=== PATIENT | female | born 1970 ===

== ENCOUNTER 2020-10-23 09:58 | Outpatient (REF) | payer OTHER, SELFPAY ==
[2020-10-23 14:20] LABS: Alanine Aminotransferase 14 U/L (0-31); Anion Gap 14 (12-20); Aspartate Amino Transferase 19 U/L (5-31); Blood Urea Nitrogen 16 mg/dL (9-16); Calcium 10.3 mg/dL (8.4-10.2); Carbon Dioxide 24 mmol/L (22-29); Chloride 105 mmol/L (96-108); Cholesterol 279 mg/dL; Estimated Glomerular Filt Rate > 60; Glucose Fasting 96 mg/dL (60-99); HDL Cholesterol 63 mg/dL; LDL Cholesterol Calculated 193 mg/dl; Potassium 4.2 mmol/L (3.3-5.1); Sodium 139 mmol/L (135-145); Triglycerides 118 mg/dL
[2020-10-23 14:39] LABS: Vitamin D 25-OH Total 37.8 ng/mL (>30)
== END 2020-10-23 09:59 | disposition home or self-care (01) ==
LOC: HO.HMGCLDS 09:58
PROVIDERS: PCP Internal Medicine; Visit Provider Internal Medicine
DX: Z00.00 Encounter for general adult medical examination without abnormal findings (principal); E78.5 Hyperlipidemia, unspecified; I10 Essential (primary) hypertension; F41.8 Other specified anxiety disorders
CPT/HCPCS: 36415; 80048; 80061; 82306; 84450; 84460

== ENCOUNTER 2021-01-31 09:48 | Outpatient (REF) | payer OTHER, SELFPAY ==
[2021-01-31 11:45] LABS: Alanine Aminotransferase 39 U/L (0-31); Aspartate Amino Transferase 34 U/L (5-31); Cholesterol 203 mg/dL; HDL Cholesterol 50 mg/dL; LDL Cholesterol Calculated 128 mg/dl; Triglycerides 129 mg/dL
[2021-02-03 12:41] LABS: Calcium, Ionized 4.9 mg/dL (4.8-5.6)
== END 2021-01-31 09:49 | disposition home or self-care (01) ==
LOC: HO.HMGCLDS 09:48
PROVIDERS: PCP Internal Medicine; Visit Provider Internal Medicine
DX: E78.5 Hyperlipidemia, unspecified (principal); E83.52 Hypercalcemia
CPT/HCPCS: 36415; 80061; 82330; 84450; 84460

== ENCOUNTER 2022-01-03 14:50 | Outpatient (REF) | payer OTHER, SELFPAY ==
--- NOTE | ~2022-01-03 | XR_ITS ---
EXAMINATION: XR CERVICAL SPINE CLINICAL INFORMATION: Radiculopathy COMPARISON: Cervical spine MRI March 17, 2018 and cervical spine x-rays October 12, 2017 TECHNIQUE: 3 views of the cervical spine were obtained. FINDINGS: The cervical spine is visualized in its entirety. There is trace retrolisthesis of C2 on C3, C3 on C4 and C4 on C5. Alignment is otherwise unremarkable. C1/2 articulation is within normal limits. Cervical vertebral body heights are maintained. There is mild disc space narrowing throughout the cervical spine. Small osteophytes scattered throughout the cervical spine, most prominent at the C4/5 level. There is no prevertebral soft tissue swelling. Visualized lung apices are well aerated. XR/XR cervical spine 3V IMPRESSION: Mild diffuse degenerative changes of the cervical spine.
== END 2022-01-03 14:51 | disposition home or self-care (01) ==
LOC: HO.HMGCX 14:50
PROVIDERS: PCP Internal Medicine; Visit Provider Physician Assistant
DX: M54.12 Radiculopathy, cervical region (principal)
CPT/HCPCS: 72040

== ENCOUNTER 2022-01-23 07:14 | Outpatient (REF) | payer OTHER, SELFPAY ==
--- NOTE | ~2022-01-23 | MR_ITS ---
EXAMINATION: MR CERVICAL SPINE WITHOUT CONTRAST CLINICAL INFORMATION: 51-year-old with self-reported neck pain radiating to the right arm more than left. Radiculopathy, cervical region. COMPARISON: 03/17/2018 MRI. TECHNIQUE: MRI of the cervical spine was obtained using routine sequences without contrast. FINDINGS: Alignment: Alignment is well-maintained. No spondylolisthesis or retrolisthesis. Craniocervical Junction/C1-C2 Articulations: Intact and aligned. Visualized Intracranial Structures: Within normal limits. Vertebral Bodies: Vertebral body heights are well-maintained stable in appearance. Disc Spaces and Endplates: [id number] disc volume loss at C2-C3 and C3-C4 and moderate to disc volume loss at C4-C5 stable in appearance, with mild degrees of multilevel anterior spondylosis between C2-C3 and C6-C7 inclusive unchanged. Schmorl's nodes at C3-C4 stable in appearance. Bone Marrow: Minor type I degenerative marrow signal change along the inferior endplate of C3 on the left is a new finding. Type II degenerative marrow signal changes along the endplates at C3-C4 are similar to previous study. No suspicious marrow replacing process. Probable small benign vertebral hemangioma on the right side of the C5 vertebral body is suspected on the current study. C2-C3: Disc osteophyte complex mildly indents the thecal sac without cord impingement, stable in appearance without canal stenosis. No significant DJD or foraminal stenosis. C3-C4: Disc osteophyte complex asymmetric to the left stable in appearance with slight flattening of the dural sac on the left without cord impingement or canal stenosis. There is uncovertebral arthrosis, left more than right, stable in appearance with mild neural foraminal stenosis, left more than right, unchanged. C4-C5: Disc osteophyte complex slightly flattens the ventral thecal sac without cord impingement and no significant canal stenosis. There is uncovertebral spurring and mild facet arthropathy again noted, now with moderate to severe left-sided and moderate right-sided neural foraminal stenosis, progressed on the left from previous exam. C5-C6: Shallow broad-based central to right paramedian disc protrusion on current exam, with mild flattening of the ventral dural sac without cord impingement or significant canal stenosis. No significant DJD or neuroforaminal stenosis. C6-C7: Right-sided subarticular to foraminal disc herniation again noted impinging on the exiting right C7 nerve root associated with severe proximal right-sided foraminal narrowing similar to previous study. Underlying minor disc osteophyte complex noted without evidence central canal stenosis. C7-T1: No disc herniation or canal stenosis. Mild facet arthrosis and ligamentum flavum thickening noted bilaterally stable in appearance without significant neural foraminal stenosis, with a perineural cyst on the left, unchanged. T1-T2: No disc herniation or canal stenosis. No DJD or neuroforaminal stenosis. Spinal Cord: The cervical and visualized upper thoracic spinal cord is normal in morphology, caliber and signal intensity. Extracranial Soft Tissues: The visualized extracranial head/neck soft tissues are unremarkable within the limitations of the study. MR/MR cervical spine wo con IMPRESSION: 1. Stable multilevel DDD and spondylosis with normal spinal alignment. 2. Right subarticular to proximal foraminal disc herniation at C6-C7 again noted with impingement on the exiting right C7 nerve root similar to the prior study with associated right-sided foraminal narrowing. 3. Multilevel posterior disc osteophyte complexes and disc protrusions as detailed by level above without cord impingement or significant canal stenosis most of which is stable. Multilevel DJD is noted with moderate to severe left-sided and moderate right-sided neural foraminal stenosis at C4-C5, progressed on the left from the previous study and mild neural foraminal stenosis at C3-C4, left more than right stable in appearance.
== END 2022-01-23 07:15 | disposition home or self-care (01) ==
LOC: HO.MRI 07:14
PROVIDERS: Visit Provider Internal Medicine
DX: M54.12 Radiculopathy, cervical region (principal)
CPT/HCPCS: 72141

== ENCOUNTER 2022-02-18 11:06 | Outpatient (REF) | payer OTHER, SELFPAY ==
[2022-02-18 14:43] LABS: Alanine Aminotransferase 57 U/L (0-31); Anion Gap 14 (12-20); Aspartate Amino Transferase 40 U/L (5-31); Blood Urea Nitrogen 15 mg/dL (9-16); Calcium 9.8 mg/dL (8.4-10.2); Carbon Dioxide 26 mmol/L (22-29); Chloride 104 mmol/L (96-108); Cholesterol 208 mg/dL; Estimated Glomerular Filt Rate > 60; Glucose Fasting 100 mg/dL (60-99); HDL Cholesterol 59 mg/dL; LDL Cholesterol Calculated 127 mg/dl; Potassium 4.4 mmol/L (3.3-5.1); Sodium 140 mmol/L (135-145); Triglycerides 112 mg/dL; Vitamin D 25-OH Total 41.9 ng/mL (>30)
== END 2022-02-18 11:07 | disposition home or self-care (01) ==
LOC: HO.HMGCLDS 11:06
PROVIDERS: PCP Internal Medicine; Visit Provider Internal Medicine
DX: E83.52 Hypercalcemia (principal); N95.9 Unspecified menopausal and perimenopausal disorder; E78.5 Hyperlipidemia, unspecified
CPT/HCPCS: 36415; 80048; 80061; 82306; 82330; 84450; 84460

== ENCOUNTER → 2022-03-12 09:15 | Outpatient (BNVA) | payer OTHER, SELFPAY | PROVIDERS: PCP Internal Medicine; Visit Provider Anesthesiology | DX: M50.30 Other cervical disc degeneration, unspecified cervical region (principal); M54.12 Radiculopathy, cervical region | CPT/HCPCS: 99202 ==

== ENCOUNTER 2022-04-21 05:51 | Outpatient (REF) | payer OTHER, SELFPAY ==
--- NOTE | ~2022-04-21 | FL_ITS ---
EXAMINATION: XR FLUOROSCOPY WITH IMAGES CLINICAL INFORMATION: M54.12 - Radiculopathy, cervical region COMPARISON: Radiographs cervical spine 01/03/2022 TECHNIQUE: Fluoroscopy Supervised By: Dr. Yuniel Hodgson. Fluoroscopy Time: 0.2 minutes. Cumulative Dose: 1.70 mGy. DAP: 0.465 Gycm2. Images: 2. FINDINGS: There is interlaminar spinal needle seen at cervical thoracic junction. There is epidural contrast noted. No visible vascular communication. FL/FL guidance in treatment room IMPRESSION: Fluoroscopy for pain management procedure.
== END 2022-04-21 05:52 | disposition home or self-care (01) ==
LOC: CF 05:51
PROVIDERS: Visit Provider Anesthesiology
DX: M54.12 Radiculopathy, cervical region (principal); M50.30 Other cervical disc degeneration, unspecified cervical region
CPT/HCPCS: 62321; J1100

== ENCOUNTER → 2022-05-25 08:18 | Outpatient (BNVA) | payer OTHER, SELFPAY | PROVIDERS: PCP Internal Medicine; Visit Provider Anesthesiology | DX: M50.30 Other cervical disc degeneration, unspecified cervical region (principal); M54.12 Radiculopathy, cervical region; F41.1 Generalized anxiety disorder; F32.A Depression, unspecified; F17.210 Nicotine dependence, cigarettes, uncomplicated | CPT/HCPCS: 99212 ==

== ENCOUNTER 2022-08-03 10:59 | Outpatient (REF) | payer OTHER, SELFPAY ==
[2022-08-03 14:05] LABS: MANUAL DIFF FLAG NO
[2022-08-03 14:38] LABS: Basophils Absolute Auto 0.1 X10*3/uL (0.0-0.2); Basophils Percent Auto 1.7 % (0-2); Eosinophils Absolute Auto 0.2 X10*3/uL (0.0-0.4); Eosinophils Percent Auto 3.2 % (0-4); Hematocrit 44.9 % (37.0-47.0); Hemoglobin 14.5 g/dl (12.0-16.0); Imm Gran Abs Auto 0.01 X10*3/uL (0.00-0.03); Imm Gran Pct Auto 0.2 % (0.0-0.4); Lymphocytes Absolute Auto 2.1 X10*3/uL (1.2-4.9); Lymphocytes Percent Auto 39.6 % (20-40); Mean Corpuscular HGB Conc 32.3 g/dl (31.0-35.0); Mean Corpuscular Hemoglobin 28.4 pg (27.0-33.0); Mean Corpuscular Volume 87.9 fL (80.0-98.0); Mean Platelet Volume 10.8 fL (9.4-12.3); Monocytes Absolute Auto 0.3 X10*3/uL (0.1-1.2); Monocytes Percent Auto 6.2 % (2-11); Neutrophils Absolute Auto 2.6 x10*3/uL (2.0-8.3); Neutrophils Percent Auto 49.1 % (45-73); Platelet Count 262 X10*3/uL (160-400); Red Blood Count 5.11 X10*6/uL (4.20-5.50); Red Cell Distribution Width 13.2 % (11.0-16.0); White Blood Count 5.4 X10*3/uL (4.8-10.8)
== END 2022-08-03 11:00 | disposition home or self-care (01) ==
LOC: HO.HMGCLDS 10:59
PROVIDERS: PCP Internal Medicine; Visit Provider Internal Medicine
DX: R10.31 Right lower quadrant pain (principal); R11.2 Nausea with vomiting, unspecified
CPT/HCPCS: 36415; 85025

== ENCOUNTER 2022-08-05 08:44 | Outpatient (REF) | payer OTHER, SELFPAY ==
--- NOTE | ~2022-08-05 | CT_ITS ---
EXAMINATION: CT ABDOMEN AND PELVIS WITH CONTRAST CLINICAL INFORMATION: Right lower quadrant pain COMPARISON: None available. TECHNIQUE: Multidetector volumetric images were obtained from the superior aspect of the liver through the pubic symphysis following administration 85 mL of Omnipaque 350 intravenous contrast. Sagittal and coronal reformatted images were obtained on the technologist's workstation. Oral contrast: No This CT examination was performed using dose optimization techniques as appropriate, variously including the following: *Automated exposure control *Adjustment of mA and/or kV according to patient size (this includes techniques or standardized protocols for targeted exams where dose is matched to indication/reason for exam; i.e. extremities or head) *Use of iterative reconstruction technique DLP: 345 mGy-cm FINDINGS: LUNG BASES: The visualized lung bases are unremarkable. LIVER, GALLBLADDER, AND BILIARY TREE: Small low-density lesion in the left lobe likely represents a small cyst. Seen previously. Slightly larger. The gallbladder is unremarkable with no evidence of radiopaque gallstones, gallbladder wall thickening, or obvious pericholecystic inflammatory changes. PANCREAS: Unremarkable. SPLEEN: Unremarkable. ADRENAL GLANDS: Unremarkable. KIDNEYS AND URETERS: The kidneys are normal in size, shape, and attenuation. No hydronephrosis, hydroureter, or calculi seen. No perinephric stranding. BLADDER: Unremarkable. GASTROINTESTINAL TRACT: The bowel pattern is felt to be nonobstructing. The appendix is normal. There is no free fluid. ABDOMINAL WALL: No significant hernia is appreciated. LYMPH NODES: Normal. VASCULAR: Unremarkable. PELVIC VISCERA: Unremarkable. OSSEOUS STRUCTURES: Unremarkable. CT/CT abdomen pelvis w IV con IMPRESSION: No acute finding. The bowel pattern is nonobstructing. No free fluid. The appendix is within normal limits. Some scattered diverticula disease in the colon. No evidence for diverticulitis. Fleischner guidelines were followed.
[2022-08-05 11:17] LABS: Appearance Urine Clear; Color Urine Dark Yellow; Glucose Urine UA 100 mg/dL (Negative); Leukocyte Esterase Urine Small (1+) (Negative); Nitrite Urine Negative (Negative); PH 6.5 (5.0-9.0); Specific Gravity - Urine 1.025 (1.005-1.025); UMIC TRIGGER UACC YES; Urine Blood Negative (Negative); Urine Ketones Negative (Negative); Urine Protein Negative (Neg-Trace)
[2022-08-05 11:22] LABS: Blood Urea Nitrogen 15 mg/dL (9-16); Estimated Glomerular Filt Rate > 60
[2022-08-05 11:23] LABS: Bacteria Urine 1+ (None Seen); Hyaline Casts Urine 0-2 /LPF (0-2); RBC Urine 0-2 /HPF (0-2); UACC Culture Trigger YES
[2022-08-05] MEDS: Barium Sulfate Oral (Mocha) 450 ML ORAL.SUSP 900 ML PO (11:58)
[2022-08-05] MEDS: iohexoL 350 MG/ML 100 ML INFUS..BTL IV (11:59)
[2022-08-05 12:23] LABS: Creatinine POC 0.5 mg/dL (0.5-1.4); GFR POC 60
== END 2022-08-05 08:45 | disposition home or self-care (01) ==
LOC: HO.CT 08:44
PROVIDERS: PCP Internal Medicine; Visit Provider Internal Medicine
DX: R10.31 Right lower quadrant pain (principal); R11.2 Nausea with vomiting, unspecified; T88.59XA Other complications of anesthesia, initial encounter
CPT/HCPCS: 36415; 74177; 81001; 82565; 84520; 87086; Q9967

== ENCOUNTER 2023-03-01 08:57 | Outpatient (AMB) | payer OTHER, SELFPAY ==
--- NOTE | 2023-03-01 09:28 | A.OFFPC_ITS ---
Vital Signs 03/01/23 09:29 Height 5 ft 2 in Weight 141 lb 6 oz BMI 25.9 BP 132/86 Blood Pressure Location Rt brachial Position Sitting Pulse 88 Pulse Source Pulse Oximeter Pulse Oximetry (%) 98 Oxygen Delivery Method Room Air Intake Visit Reasons: ER follow up [facility] Note: pt is here to follow up from [facility] ER pt says this last time their was no findings Allergies walnut Allergy (Severe, Verified 03/01/23 09:51) Anaphylaxis adhesive Allergy (Unknown, Verified 03/01/23 09:51) Blister egg Allergy (Unknown, Verified 03/01/23 09:51) Gastrointestinal Upset erythromycin base Allergy (Unknown, Verified 03/01/23 09:51) Diarrhea, Hives Latex, Natural Rubber [LATEX, NATURAL RUBBER] Allergy (Unknown, Verified 03/01/23 09:51) Rash cyclobenzaprine [From Flexeril] Adverse Reaction (Unknown, Verified 03/01/23 09:51) makes her anxious, jittery Medication List - Last Reconciled 03/01/23 by Norma Waters MD acetaminophen (Tylenol) PO DAILY PRN ashwagandha root extract mg PO evening primrose oil 500 mg PO TID ibuprofen (Motrin) PO DAILY PRN lorazepam 0.5 mg PO DAILY PRN niacin 100 mg PO BEDTIME TENS units Use as directed once a day Tobacco use date assessed: 03/01/23 Dental Screening Dental Screen Date: 03/01/23 Did you have a dental visit in the last 12 months?: Yes Did you have a dental problem in the last 6 months where you did not have access to dental care?: No Was dental information given to patient?: Patient has dentist HPI ER follow up [facility] HPI Details 52-year-old lady with history of diverti culitis, anxiety depression, cervical degenerative disc disease, and dyslipidemia, here today for follow-up after recent ER visit at [facility] 02/10/2023.. She presented there complaining of right lower abdominal pain. Patient was seen at same ER 2 weeks prior and was treated for acute diverticulitis with antibiotics, but abdominal pain persisted. She denies any blood in stool, no nausea, no vomiting, no chest pain, no fever, no shortness of breath. Never had a colonoscopy. Labs done at ER which included urinalysis, CBC , CMP were unremarkable. CT of abdomen showed no acute abnormality. Patient states that only pain relief she gets is when she takes a laxatives and moves her bowels. However abdominal pain usually recurs. She has tried making an appointment with GI for further evaluation management but appointment she was given was not until June 2023. [facility] Medical History (Updated 03/01/23 @ 10:05 by Norma Waters MD) Right lower quadrant abdominal pain DDD (degenerative disc disease), cervical History of smoking 10-25 pack years Depression with anxiety Primary insomnia Dyslipidemia Surgical History H/O wisdom tooth extraction H/O arthroscopic knee surgery H/O bilateral breast reduction surgery History of partial hysterectomy Social History Housing: Condominium Alcohol intake: current Patient Tobacco Use Status: Current everyday Tobacco user Tobacco use type: Cigarette Cigarette Packs Per Day: 8 Cigarettes Per Day: 40 Years Smoked: 30 Packs Per Year: 240 Packs per year/per ci.00 e-Cigarette/Vaping Use: Former Use Second Hand Smoke Exposure: No service: No Current occupational status: employed Cognitive needs: No Hearing needs: No Vision needs: Yes Questionnaire Thrive Questionnaire Date Thrive assessed: 08/03/22 SEN-7 AMB Questionnaire SEN-7 Date SEN - 7 assessed: 08/03/22 Source: Developed by Drs. Omar Rosenthal, Harper Kuhn, Ray Turcios and colleagues, with an educational sherron from [employer]. Review of Systems Const All systems reviewed & are unremarkable except as noted in HPI and below Physical exam (Primary Care) Vital Signs: Last Vital Signs Pulse 88 03/01/23 09:29 BP 132/86 03/01/23 09:29 Pulse Ox 98 03/01/23 09:29 Oxygen Delivery Method Room Air 03/01/23 09:29 BMI result Body Mass Index 25.9 Tobacco/Smoking Status: Tobacco use Status Tobacco use date assessed 03/01/23 03/01/23 09:39 Patient Tobacco Use Status Current everyday Tobacco 03/01/23 09:28 Tobacco use type Cigarette 03/01/23 09:28 e-Cigarette/Vaping Use Former Use 03/01/23 09:28 Thrive Assessment: Date of Thrive Assessment Date Thrive assessed 08/03/22 03/01/23 09:28 Const Other: Alert oriented x3, no acute cardiorespiratory distress noted, ambulatory normal gait HENMT Mouth: moist mucous membranes Resp Auscultation: clear to auscultation bilaterally Cardio Other: S1-S2 present regular rate and rhythm GI Other: Positive tenderness on palpation over right lower quadrant, no rebound, no guarding, no mass palpated Auscultation: normal bowel sounds General: Yes no CVA tenderness Back/Spine/Pelvis Back: no CVA tenderness Skin General skin exam: no rashes or lesions noted Extrem General: Yes full ROM, Yes no joint enlargement, Yes no clubbing, cyanosis or edema and Yes normal gait Assessment and Plan Assessment & Plan (1) Right lower quadrant abdominal pain: Code(s): R10.31 - Right lower quadrant pain Plan: Labs recently done at the ER all came back unremarkable, as CT scan of the abdomen pelvis also showed unremarkable findings with evidence of diverticulitis or appendicitis. . Will empirically treat with dicyclomine 20 mg per tablet to take 1 tablet 3 times a day. Advised to ease up on her dosing frequency if she starts developing any diarrhea with medication. Avoidance of dairy for now, eat food that is easy to digest. Will refer to GI for further evaluation management Orders: Referrals Gastroenterology Referral R10.31 - Right lower quadrant pain Coding Level of Care Code Est Pt Level 3 (59275) Diagnoses Right lower quadrant abdominal pain R10.31
[2023-03-01 09:29] VITALS: BP 132/86; PULSE 88; O2SAT 98; BMI 25.9
== END 2023-03-01 10:51 | disposition home or self-care (01) ==
PROVIDERS: PCP Internal Medicine; Visit Provider Internal Medicine
DX: R10.31 Right lower quadrant pain (principal); F17.210 Nicotine dependence, cigarettes, uncomplicated; F41.8 Other specified anxiety disorders
CPT/HCPCS: 99213

== ENCOUNTER 2023-06-01 08:15 | Outpatient (REF) | payer OTHER, SELFPAY ==
[2023-06-01 09:33] LABS: MANUAL DIFF FLAG NO
[2023-06-01 10:13] LABS: Basophils Absolute Auto 0.1 X10*3/uL (0.0-0.2); Basophils Percent Auto 1.3 % (0-2); Eosinophils Absolute Auto 0.1 X10*3/uL (0.0-0.4); Eosinophils Percent Auto 1.9 % (0-4); Hematocrit 46.4 % (37.0-47.0); Hemoglobin 15.3 g/dl (12.0-16.0); Imm Gran Abs Auto 0.02 X10*3/uL (0.00-0.03); Imm Gran Pct Auto 0.3 % (0.0-0.4); Lymphocytes Absolute Auto 2.1 X10*3/uL (1.2-4.9); Lymphocytes Percent Auto 29.7 % (20-40); Mean Platelet Volume 10.7 fL (9.4-12.3); Monocytes Absolute Auto 0.4 X10*3/uL (0.1-1.2); Monocytes Percent Auto 5.4 % (2-11); Neutrophils Absolute Auto 4.4 x10*3/uL (2.0-8.3); Neutrophils Percent Auto 61.4 % (45-73); Platelet Count 242 X10*3/uL (160-400); Red Blood Count 5.27 X10*6/uL (4.20-5.50); Red Cell Distribution Width 13.2 % (11.0-16.0); White Blood Count 7.2 X10*3/uL (4.8-10.8)
== END 2023-06-01 08:16 | disposition home or self-care (01) ==
LOC: HO.LAB 08:15
PROVIDERS: PCP Internal Medicine; Visit Provider Physician Assistant
DX: R10.31 Right lower quadrant pain (principal); K52.9 Noninfective gastroenteritis and colitis, unspecified; K57.30 Diverticulosis of large intestine without perforation or abscess without bleeding
CPT/HCPCS: 36415; 85025; 99202

== ENCOUNTER 2023-06-01 08:15 | Outpatient (AMB) | payer OTHER, SELFPAY ==
--- NOTE | 2023-06-01 08:20 | MHC.OFFVIS ---
Intake Vital Signs 06/01/23 08:32 Height 5 ft 2 in Weight 140 lb BMI 25.6 BP 152/83 H Blood Pressure Location Lt brachial Position Sitting Pulse 81 Intake Visit Reasons: Right lower quadrant pain Intake Note: Patient new consult for RLQ pain. Patient is been for year with RLQ pain, between diarrhea and constipation abdominal. Denies any other GI issues. Internet Marketing Consultant Required: No Accompanied by: Self / Same As Patient Allergies walnut Allergy (Severe, Verified 06/01/23 08:26) Anaphylaxis adhesive Allergy (Unknown, Verified 06/01/23 08:26) Blister egg Allergy (Unknown, Verified 06/01/23 08:26) Gastrointestinal Upset erythromycin base Allergy (Unknown, Verified 06/01/23 08:26) Diarrhea, Hives Latex, Natural Rubber [LATEX, NATURAL RUBBER] Allergy (Unknown, Verified 06/01/23 08:26) Rash cyclobenzaprine [From Flexeril] Adverse Reaction (Unknown, Verified 06/01/23 08:26) makes her anxious, jittery Medication List - Last Reconciled 06/01/23 by Chela Liriano PA-C ashwagandha root extract mg PO dicyclomine 20 mg PO QID 30 days evening primrose oil 500 mg PO TID ibuprofen (Motrin) PO DAILY PRN lorazepam 0.5 mg PO DAILY PRN niacin 100 mg PO BEDTIME nicotine 1 patch transdermal Q24H TENS units Use as directed once a day HPI HPI Comments History of Present Illness Details A 52 y/o female - LQ pain x 5 years-she was told she had diverticulitis/ diverticulosis- was put on meds for IBS- by pcp- she took IBGuard- works fairly well CT- 02/2023- no findings to account for her symptoms appetite is good-she does get heartburn ongoing intermittently for years Alternating bowel pattern- IBGuard has helped-symptoms improved-BM most days No nausea, vomiting, hematemesis, hematochezia fever chills PFSH Medical History Right lower quadrant abdominal pain DDD (degenerative disc disease), cervical History of smoking 10-25 pack years Depression with anxiety Primary insomnia Dyslipidemia Surgical History H/O wisdom tooth extraction H/O arthroscopic knee surgery H/O bilateral breast reduction surgery History of partial hysterectomy Social History Housing: Condominium Alcohol intake: current Patient Tobacco Use Status: Current everyday Tobacco user Tobacco use type: Cigarette Cigarette Packs Per Day: 8 Cigarettes Per Day: 40 Years Smoked: 30 e-Cigarette/Vaping Use: Former Use Second Hand Smoke Exposure: No service: No Current occupational status: employed Cognitive needs: No Hearing needs: No Vision needs: Yes Review of Systems Const All systems reviewed & are unremarkable except as noted in HPI and below Card Denies chest pain and Denies dyspnea Resp Denies dyspnea GI Reports abdominal pain, Denies hematochezia, Reports heartburn, Denies nausea and Denies vomiting Physical Exam Vital Signs: Last Vital Signs Pulse 81 06/01/23 08:32 BP 152/83 H 06/01/23 08:32 BMI result Body Mass Index 25.6 Const General: cooperative, healthy appearing, comfortable and no acute distress Orientation/consciousness: patient oriented x3 Limitations: no limitations Eyes Sclerae: sclerae normal Resp Effort & Inspection: normal respiratory effort and able to speak in complete sentences Auscultation: clear to auscultation bilaterally, no rales, no rhonchi and no wheezes Cardio Rate: regular rate Rhythm: regular rhythm Heart sounds: S1 normal heart sound present and S2 normal heart sound present GI Palpation (GI): Soft to palpation and nontender Auscultation: normal bowel sounds Skin General skin exam: no rashes or lesions noted Neuro General: patient oriented x3 Extrem General: Yes full ROM Psych Appearance: grossly normal Speech and movement: Clear speech present Affect: normal affect Attitude: cooperative Thought process: Normal thought process present Thought content: Normal thought content present Assessment & Plan Assessment & Plan (1) Right lower quadrant abdominal pain: Comment: Physical exam physical exam unremarkable Code(s): R10.31 - Right lower quadrant pain (2) Diverticulosis of colon: Comment: Diverticulosis/diverticulitis-never had colonoscopy Code(s): K57.30 - Diverticulosis of large intestine without perforation or abscess without bleeding Plan: Index screening colonoscopy Maintain high-fiber diet Diverticulosis/diverticulitis ER protocol Plan Index colon- MG prep Omeprazole-- f/u 6-8 weeks Orders: Orders Complete Blood Count Auto Diff Today K52.9 - Noninfective gastroenteritis and colitis, unspecified Colonoscopy - GI Use Only Today Z12.11 - Encounter for screening for malignant neoplasm of colon Medications: New bisacodyl (Dulcolax (bisacodyl)) Day before procedure @ 12 noon Take 4 tablets by mouth followed by large glass of water 20 mg (4 x 5 mg) PO ONCE 1 day PRN 4 tabs 0RF colonoscopy prep Z12.11 - Encounter for screening for malignant neoplasm of colon polyethylene glycol 3350 (Miralax) Take as directed by mouth the day before your procedure. 238 grams PO ONCE 1 day PRN 238 grams 0RF laxative effect omeprazole 20 mg PO DAILY 30 caps 5RF Patient Instructions: A 52-year-old female referred with chronic right lower quadrant pain history of diverticulosis, presents with acid reflux. Her symptoms are somewhat vague Reviewed reflux precautions Will give trial to PPI Follow back for progress She will be scheduled for Index screening colonoscopy-may add EGD if appropriate Maintain high-fiber diet Diverticulosis/diverticulitis ER protocol Coding Level of Care Code New Pt Level 3 (36721) Diagnoses Right lower quadrant abdominal pain R10.31 Diverticulosis of colon K57.30 Time Spent (min) 30
[2023-06-01 08:32] VITALS: BP 152/83; PULSE 81; BMI 25.6
== END 2023-06-01 09:01 | disposition home or self-care (01) ==
PROVIDERS: PCP Internal Medicine; Visit Provider Physician Assistant
DX: R10.31 Right lower quadrant pain (principal); K57.30 Diverticulosis of large intestine without perforation or abscess without bleeding
CPT/HCPCS: 99203

== ENCOUNTER 2023-09-16 10:30 | Outpatient (AMB) | payer OTHER, SELFPAY ==
--- NOTE | 2023-09-16 10:52 | A.OFFPC_ITS ---
Vital Signs 09/16/23 11:13 Height 5 ft 2 in Weight 140 lb BMI 25.6 BP 168/100 H Blood Pressure Location Lt brachial Position Sitting Pulse 91 Pulse Source Pulse Oximeter Pulse Oximetry (%) 99 Oxygen Delivery Method Room Air Intake Visit Reasons: Rescheduled from 08/16/23 Intake Note: pt here for f/u on Nicotine patch. Did not continue therapy. Still smoking. Requesting urinalysis/culture. Thinks has UTI. C/O urgency/ burning sensation after urinating Allergies walnut Allergy (Severe, Verified 09/27/23 02:49) Anaphylaxis adhesive Allergy (Unknown, Verified 09/27/23 02:49) Blister egg Allergy (Unknown, Verified 09/27/23 02:49) Gastrointestinal Upset erythromycin base Allergy (Unknown, Verified 09/27/23 02:49) Diarrhea, Hives Latex, Natural Rubber [LATEX, NATURAL RUBBER] Allergy (Unknown, Verified 09/27/23 02:49) Rash cyclobenzaprine [From Flexeril] Adverse Reaction (Unknown, Verified 09/27/23 02:49) makes her anxious, jittery Medication List - Last Reconciled 09/27/23 by Norma Waters MD fexofenadine (Pily Allergy) 180 mg PO DAILY lactobacillus combination no.4 (Probiotic) 3,000 mmu cells PO DAILY lidocaine 5% 1 patch topical DAILY PRN lorazepam 0.5 mg PO DAILY PRN multivitamin 1 tab PO DAILY sulfamethoxazole-trimethoprim 800-160 mg (Bactrim DS) 1 tab PO Q12H 3 days TENS units Use as directed once a day varenicline PO PER PKG DIR Tobacco use date assessed: 09/16/23 Dental Screening Dental Screen Date: 09/16/23 Did you have a dental visit in the last 12 months?: No Did you have a dental problem in the last 6 months where you did not have access to dental care?: No Was dental information given to patient?: Patient has dentist HPI Rescheduled from 08/16/23 HPI Details 52-year-old lady here today for follow-u p regarding smoking cessation after trying nicotine patch. Patient states that she had to stop using the patch as she still was having the craving to smoke cigarettes . Like to try something else, has had Chantix in the past which has helped. She is here complaining of urinary frequency and urgency accompanied by slight burning after urination. No accompanying fever, no chills, slight lower abdominal pressure discomfort but no flank pain. She has also been having frequent posterior neck pain with radiation down both arms, right more than the left, accompanied by tingling sensation. MRI of cervical spine done 2019, showed presence of multilevel DDD noted with moderate to severe left-sided and moderate right-sided neural foraminal stenosis at C4- C5, progressed on the left from the previous study and mild neural foraminal stenosis at C3-C4, left more than right stable in appearance.and spondylosis with normal spinal alignment., right disc herniation at C6-C7 with impingement on the exiting right C7 nerve root similar to the prior study with associated right-sided foraminal narrowing. Has been taking naproxen in the past but it has started causing irritation in her stomach, takes an occasional Tylenol which affords not much improvement in her pain. Has been using lidocaine patches to affected area which affords only temporary relief.. Would like a referral to see at [facility] for further evaluation and management. [facility] Medical History (Updated 09/27/23 @ 02:57 by Norma Waters MD) Herniation of cervical intervertebral disc with radiculopathy Right lower quadrant abdominal pain History of smoking 10-25 pack years Depression with anxiety Primary insomnia Dyslipidemia Surgical History H/O wisdom tooth extraction H/O arthroscopic knee surgery H/O bilateral breast reduction surgery History of partial hysterectomy Social History Housing: Condominium Alcohol intake: current Patient Tobacco Use Status: Current everyday Tobacco user Tobacco use type: Cigarette Cigarette Packs Per Day: 8 Cigarettes Per Day: 40 Years Smoked: 30 e-Cigarette/Vaping Use: Former Use Second Hand Smoke Exposure: No service: No Current occupational status: employed Cognitive needs: No Hearing needs: No Vision needs: Yes Questionnaire PHQ-9 Over the last 2 weeks, how often have you been bothered by any of the following problems? 1. Little interest or pleasure in doing things: not at all 2. Feeling down, depressed, or hopeless: not at all 3. Trouble falling or staying asleep, or sleeping too much: nearly every day 4. Feeling tired or having little energy: not at all 5. Poor appetite or overeating: not at all 6. Feeling bad about yourself - or that you are a failure or have let yourself or your family down: not at all 7. Trouble concentrating on things, such as reading the newspaper or watching television: not at all 8. Moving or speaking so slowly that other people could have noticed. Or the opposite - being so fidgety or restless that you have been moving around a lot more than usual: not at all 9. Thoughts that you would be better off or of hurting yourself in some way: not at all Total score: 3 Depression Screening Interpretation: Negative Depression Screening Done: Yes 06859 - PHQ-9 Billing: Yes Source: Developed by Drs. Omar Rosenthal, Harper Kuhn, Ray Turcios and colleagues, with an educational sherron from [employer]. Thrive Questionnaire Date Thrive assessed: 09/16/23 I am a: Patient What is your living situation today?: I have a steady place to live Within the past 12 months, did the food you bought not last and you didn't have the money to get more?: Never true Within the past 12 months, did you worry whether your food would run out before you got money to buy more?: Never true Do you have trouble paying for medicines?: No Do you have trouble getting transportation to medical appointments?: No Do you have trouble paying your heating and electricity bill?: No Do you have trouble taking care of your child, family member or friend?: No Do you have trouble with day-to-day activities such as bathing, preparing meals, shopping, managing finances, etc.?: No Are you currently unemployed and looking for a job?: No Are you interested in more education?: No Please select the resources that you would like help with: None Currently or been in a relationship where the following occur: no concerns reported THRIVE Score: 0 AUDIT C Alcohol Use Questionnaire (AUDIT-C) 1. How often do you have a drink containing alcohol?: Never Total Score: 0 SEN-7 AMB Questionnaire SEN-7 Date SEN - 7 assessed: 09/16/23 Feeling nervous, anxious, or on edge: 0 = Not at all Not being able to stop or control worryin = Not at all Worrying too much about different things: 0 = Not at all Trouble relaxin = Not at all Being so restless that it is hard to sit still: 0 = Not at all Becoming easily annoyed or irritable: 0 = Not at all Feeling afraid as if something awful might happen: 0 = Not at all Total SEN-7 score (0-4 normal; 5-9 mild; 10-14 moderate; 15-21 severe): 0 Source: Developed by Drs. Omar Rosenthal, Harper Kuhn, Ray Turcios and colleagues, with an educational sherron from [employer]. SEN-7 Assessment Billing SEN-7 Assessment Tool: SEN-7 Assessment 27086 Review of Systems Const All systems reviewed & are unremarkable except as noted in HPI and below Reports headache(s) ENT Denies dizziness, Reports headache(s), Denies hoarseness and Denies nasal congestion Card Denies chest pain and Denies dyspnea Resp Denies cough and Denies dyspnea GI Reports abdominal pain, Denies hematochezia, Reports heartburn, Denies nausea and Denies vomiting Reports as per HPI and Denies hematuria Musc Reports as per HPI, Denies abnormal gait and Reports tingling Neuro Denies abnormal gait, Denies dizziness, Reports headache(s), Reports tingling and Reports paresthesias Physical exam (Primary Care) Vital Signs: Last Vital Signs Pulse 91 09/16/23 11:13 BP 168/100 H 09/16/23 11:13 Pulse Ox 99 09/16/23 11:13 Oxygen Delivery Method Room Air 09/16/23 11:13 BMI result Body Mass Index 25.6 Tobacco/Smoking Status: Tobacco use Status Tobacco use date assessed 09/16/23 09/16/23 10:56 Patient Tobacco Use Status Current everyday Tobacco 09/16/23 10:56 Tobacco use type Cigarette 09/16/23 10:56 e-Cigarette/Vaping Use Former Use 09/16/23 10:56 PHQ-9: PHQ-9 Score PHQ-9: Total score 3 09/16/23 11:43 Depression Screening Interpretation: Negative Thrive Assessment: Date of Thrive Assessment Date Thrive assessed 09/16/23 09/16/23 11:23 Currently or been in a relationship where the following occur: no concerns reported Const Other: Alert oriented x3, no acute cardiorespiratory distress noted, ambulatory normal gait Orientation/consciousness: patient oriented x3 HENMT Mouth: moist mucous membranes Neck Other: Slight tenderness on palpation listed on paraspinal muscles and cervical area, decreased range of motion due to pain stiffness Resp Auscultation: clear to auscultation bilaterally Cardio Other: S1-S2 present regular rate and rhythm GI Auscultation: normal bowel sounds General: Yes no CVA tenderness Back/Spine/Pelvis Back: no CVA tenderness Skin General skin exam: no rashes or lesions noted Neuro General: patient oriented x3, gait normal, tone normal, moves all extremities, Normal light touch and pain sensation and no focal motor deficits Extrem General: Yes full ROM, Yes no joint enlargement, Yes no clubbing, cyanosis or edema and Yes normal gait Results AMB Urinalysis, Automated UA Leukoctes 0 Sondra/uL Last Edit by Jordan Garcia CMA on 09/16/23 11:34 UA Nitrite Negative Last Edit by Jordan Garcia CMA on 09/16/23 11:34 UA Urobilinogen 0.2 mg/dL Last Edit by Jordan Garcia CMA on 09/16/23 11:34 UA Protein 0 mg/dL Last Edit by Jordan Garcia CMA on 09/16/23 11:34 UA pH 6.0 Last Edit by Jordan Garcia CMA on 09/16/23 11:34 UA Blood 0 Morgan/uL Last Edit by Jordan Garcia CMA on 09/16/23 11:34 UA Specific [place] 1.005 Last Edit by Jordan Garcia CMA on 09/16/23 11:34 UA Ketone Negative Last Edit by Jordan Garcia CMA on 09/16/23 11:34 UA Bilirubin 0 mg/dL Last Edit by Jordan Garcia CMA on 09/16/23 11:34 UA Glucose 0 mg/dL Last Edit by Jordan Garcia CMA on 09/16/23 11:34 Results Reviewed Results Reviewed: Laboratory Last Values Urine pH (Auto) 6.0 09/16/23 11:32 Specific [place] (Auto) 1.005 09/16/23 11:32 Urine Protein (Auto) 0 mg/dL 09/16/23 11:32 Glucose (UA)(Auto) 0 mg/dL 09/16/23 11:32 Urine Ketones (Auto) Negative 09/16/23 11:32 Urine Blood (Auto) 0 Morgan/uL 09/16/23 11:32 Urine Nitrite (Auto) Negative 09/16/23 11:32 Urine Bilirubin (Auto) 0 mg/dL 09/16/23 11:32 Urine Urobilinogen (Auto) 0.2 mg/dL 09/16/23 11:32 Leukocyte Esterase (Auto) 0 Sondra/uL 09/16/23 11:32 Assessment and Plan Assessment & Plan (1) Cervical radiculopathy at C6: Code(s): M54.12 - Radiculopathy, cervical region Plan: Referral to Dr. Abdiaziz Gutiérrez at [facility] , prescription sent for lidocaine patch 5%, to be applied to affected area in posterior neck /upper back (2) Cervical radiculopathy at C7: Code(s): M54.12 - Radiculopathy, cervical region Plan: Referral to Dr. Abdiaziz Gutiérrez at [facility] (3) History of smoking 10-25 pack years: Code(s): Z87.891 - Personal history of nicotine dependence Plan: Stop nicotine patch, prescription sent for varenicline starter pack, to take as directed, see me back for follow-up in 4 weeks after starting medication (4) Herniation of cervical intervertebral disc with radiculopathy: Code(s): M50.10 - Cervical disc disorder with radiculopathy, unspecified cervical region Plan: Referral to Dr. Abdiaziz Gutiérrez at [facility] (5) Dysuria: Code(s): R30.0 - Dysuria Plan: Empirically treated with Bactrim DS 1 tablet every 12 hours for 3 days, stay well-hydrated, with plenty of water Orders: Orders AMB Urinalysis Automated 09/16/23 Z13.9 - Encounter for screening, unspecified Referrals Orthopedics Referral M54.12 - Radiculopathy, cervical region Medications: New lidocaine 5% leave on most painful area for up to 12 hrs 1 patch topical DAILY PRN 30 ea 1RF Posterior neck pain M54.12 - Radiculopathy, cervical region, M50.30 - Other cervical disc degeneration, unspecified cervical region sulfamethoxazole-trimethoprim 800-160 mg (Bactrim DS) 1 tab PO Q12H 6 tabs 0RF 3 days varenicline PO PER PKG DIR 53 ea 0RF Z87.891 - Personal history of nicotine dependence Coding Level of Care Code Est Pt Level 4 (53500) Diagnoses Cervical radiculopathy at C6 M54.12 Cervical radiculopathy at C7 M54.12 History of smoking 10-25 pack years Z87.891 Herniation of cervical intervertebral disc with radiculopathy M50.10 Dysuria R30.0 Additional Codes SEN-7 Assessment Billing - SEN-7 Assessment Tool: SEN-7 Assessment 33763 ([id number])
[2023-09-16 11:13] VITALS: BP 168/100; PULSE 91; O2SAT 99; BMI 25.6
== END 2023-09-16 12:01 | disposition home or self-care (01) ==
PROVIDERS: PCP Internal Medicine; Visit Provider Internal Medicine
DX: M54.12 Radiculopathy, cervical region (principal)
CPT/HCPCS: 81003; 99214

== ENCOUNTER 2023-10-15 07:54 | Outpatient (AMB) | payer OTHER, SELFPAY ==
--- NOTE | 2023-10-15 07:55 | A.OFFPC_ITS ---
Intake Visit Reasons: 4 week follow up smoking sensation Allergies walnut Allergy (Severe, Verified 10/15/23 08:30) Anaphylaxis adhesive Allergy (Unknown, Verified 10/15/23 08:30) Blister egg Allergy (Unknown, Verified 10/15/23 08:30) Gastrointestinal Upset erythromycin base Allergy (Unknown, Verified 10/15/23 08:30) Diarrhea, Hives Latex, Natural Rubber [LATEX, NATURAL RUBBER] Allergy (Unknown, Verified 10/15/23 08:30) Rash cyclobenzaprine [From Flexeril] Adverse Reaction (Unknown, Verified 10/15/23 08:30) makes her anxious, jittery Medication List - Last Reconciled 10/15/23 by Norma Waters MD fexofenadine (Pily Allergy) 180 mg PO DAILY lactobacillus combination no.4 (Probiotic) 3,000 mmu cells PO DAILY lidocaine 5% 1 patch topical DAILY PRN lorazepam 0.5 mg PO DAILY PRN multivitamin 1 tab PO DAILY TENS units Use as directed once a day varenicline 1 mg PO BID Tobacco use date assessed: 09/16/23 Dental Screening Dental Screen Date: 09/16/23 HPI 4 week follow up smoking sensation HPI Details 53-year-old lady here today for follow-u p regarding her smoking cessation. Currently smokes at least a pack a day in the past, now down to about 5 cigarettes per day after starting Chantix starter pack. Denies any nausea, no abdominal cramping, unpleasant dreams, worsening of anxiety or mood swings on medication. Would like to continue and motivated to quit. [facility] Medical History Blood pressure elevated without history of HTN On varenicline therapy Herniation of cervical intervertebral disc with radiculopathy Right lower quadrant abdominal pain History of smoking 10-25 pack years Depression with anxiety Primary insomnia Dyslipidemia Surgical History H/O wisdom tooth extraction H/O arthroscopic knee surgery H/O bilateral breast reduction surgery History of partial hysterectomy Social History Housing: Condominium Alcohol intake: current Patient Tobacco Use Status: Current everyday Tobacco user Tobacco use type: Cigarette Cigarette Packs Per Day: 8 Cigarettes Per Day: 40 Years Smoked: 30 Packs Per Year: 240 Packs per year/per ci.00 e-Cigarette/Vaping Use: Former Use Second Hand Smoke Exposure: No service: No Current occupational status: employed Cognitive needs: No Hearing needs: No Vision needs: Yes Questionnaire Thrive Questionnaire Date Thrive assessed: 09/16/23 SEN-7 AMB Questionnaire SEN-7 Date SEN - 7 assessed: 09/16/23 Source: Developed by Drs. Omar Rosenthal, Harper Kuhn, Ray Turcios and colleagues, with an educational sherron from [employer]. Review of Systems Const Reports no additional complaints ENT Denies dizziness, Denies hoarseness and Denies nasal congestion Card Denies chest pain, Denies irregular heart rhythm, Denies lightheadedness and Denies dyspnea Resp Denies cough and Denies dyspnea GI Reports as per HPI, Denies abdominal pain, Denies hematochezia and Denies change in bowel habits Neuro Denies dizziness Psych Reports no additional complaints Physical exam (Primary Care) Tobacco/Smoking Status: Tobacco use Status Tobacco use date assessed 09/16/23 10/15/23 07:55 Patient Tobacco Use Status Current everyday Tobacco 10/15/23 07:55 Tobacco use type Cigarette 10/15/23 07:55 e-Cigarette/Vaping Use Former Use 10/15/23 07:55 Thrive Assessment: Date of Thrive Assessment Date Thrive assessed 09/16/23 10/15/23 07:55 Telehealth Telehealth Telehealth Platform: [facility] Location of provider rendering services: practice address Location of patient: address on file Patient Identification confirmed using: Name, : Yes Telehealth method: video Patient verbally consented to treatment: Yes Patient verbally consented to billing insurance company: Yes Patient informed of any privacy concerns related to visit: Yes Minutes spent on Phone/Video with Pt.: 15 Assessment and Plan Assessment & Plan (1) On varenicline therapy: Code(s): Z79.899 - Other fci (current) drug therapy Plan: Doing well on Chantix, no side effects reported, now down to just smoking 5 cigarettes a day and still cutting back. Patient directed on how to take medication. . Advised to take it with a full glass of water and with meals. Will continue on current dose, and reminded again to continue cutting back on smoking should be quit altogether by the middle to the end of her 2nd prescription, Follow-up in (2) Cigarette smoker motivated to quit: Code(s): F17.210 - Nicotine dependence, cigarettes, uncomplicated Plan: Doing well on Chantix, no side effects reported, now down to just smoking 5 cigarettes a day and still cutting back. Patient directed on how to take medication. . Advised to take it with a full glass of water and with meals. Will continue on current dose, and reminded again to continue cutting back on smoking should be quit altogether by the middle to the end of her 2nd prescription, Follow-up in (3) Blood pressure elevated without history of HTN: Code(s): R03.0 - Elevated blood-pressure reading, without diagnosis of hypertension Plan: Blood pressure has been elevated on previous visits, due to pain, advised to check blood pressure at home, goal is less than 130/80 . 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
== END 2023-10-15 09:13 | disposition home or self-care (01) ==
PROVIDERS: PCP Internal Medicine; Visit Provider Internal Medicine
DX: R03.0 Elevated blood-pressure reading, without diagnosis of hypertension (principal); Z79.899 Other long term (current) drug therapy; F17.210 Nicotine dependence, cigarettes, uncomplicated
CPT/HCPCS: 99214

== ENCOUNTER 2023-12-21 12:48 | Outpatient (AMB) | payer OTHER, SELFPAY ==
--- NOTE | 2023-12-21 12:50 | A.OFFPC_ITS ---
Vital Signs 12/21/23 12:54 Height 5 ft 2 in Weight 136 lb 4 oz BMI 24.9 BP 134/90 H Blood Pressure Location Rt brachial Position Sitting Pulse 82 Pulse Source Pulse Oximeter Pulse Oximetry (%) 98 Oxygen Delivery Method Room Air Intake Visit Reasons: F/U Smoking Cessation Intake Note: Patient here for f/u for smoking cessation. Allergies walnut Allergy (Severe, Verified 12/26/23 22:14) Anaphylaxis adhesive Allergy (Unknown, Verified 12/26/23 22:14) Blister egg Allergy (Unknown, Verified 12/26/23 22:14) Gastrointestinal Upset erythromycin base Allergy (Unknown, Verified 12/26/23 22:14) Diarrhea, Hives Latex, Natural Rubber [LATEX, NATURAL RUBBER] Allergy (Unknown, Verified 12/26/23 22:14) Rash cyclobenzaprine [From Flexeril] Adverse Reaction (Unknown, Verified 12/26/23 22:14) makes her anxious, jittery Tobacco use date assessed: 09/16/23 Dental Screening Dental Screen Date: 09/16/23 HPI F/U Smoking Cessation HPI Details 53-year-old lady here today for follow-u p regarding smoking cessation. Has been tried on Chantix but was unable to tolerate the side effects, and has tried nicotine patches which she states did not help. Is still committed to quitting smoking, has now cut down to just smoking a cigarettes a day. FOR[facility]LY [facility] Medical History Blood pressure elevated without history of HTN Herniation of cervical intervertebral disc with radiculopathy Right lower quadrant abdominal pain History of smoking 10-25 pack years Depression with anxiety Primary insomnia Dyslipidemia Surgical History H/O wisdom tooth extraction H/O arthroscopic knee surgery H/O bilateral breast reduction surgery History of partial hysterectomy Social History Housing: Condominium Alcohol intake: current Patient Tobacco Use Status: Current everyday Tobacco user Tobacco use type: Cigarette Cigarette Packs Per Day: 8 Cigarettes Per Day: 40 Years Smoked: 30 e-Cigarette/Vaping Use: Former Use Second Hand Smoke Exposure: No service: No Current occupational status: employed Cognitive needs: No Hearing needs: No Vision needs: Yes Questionnaire PHQ-9 Over the last 2 weeks, how often have you been bothered by any of the following problems? 1. Little interest or pleasure in doing things: not at all 3. Trouble falling or staying asleep, or sleeping too much: nearly every day 4. Feeling tired or having little energy: several days 5. Poor appetite or overeating: not at all 6. Feeling bad about yourself - or that you are a failure or have let yourself or your family down: not at all 7. Trouble concentrating on things, such as reading the newspaper or watching television: not at all 8. Moving or speaking so slowly that other people could have noticed. Or the op posite - being so fidgety or restless that you have been moving around a lot more than usual: not at all 9. Thoughts that you would be better off or of hurting yourself in some way: not at all Depression Screening Interpretation: Negative Depression Screening Done: Yes 71265 - PHQ-9 Billing: Yes Source: Developed by Drs. Omar Rosenthal, Harper Kuhn, Ray Turcios and colleagues, with an educational sherron from [employer]. Thrive Questionnaire Date Thrive assessed: 09/16/23 I am a: Patient What is your living situation today?: I have a steady place to live Within the past 12 months, did the food you bought not last and you didn't have the money to get more?: Never true Within the past 12 months, did you worry whether your food would run out before you got money to buy more?: Never true Do you have trouble paying for medicines?: No Do you have trouble getting transportation to medical appointments?: No Do you have trouble paying your heating and electricity bill?: No Do you have trouble taking care of your child, family member or friend?: No Do you have trouble with day-to-day activities such as bathing, preparing meals, shopping, managing finances, etc.?: No Are you currently unemployed and looking for a job?: No Are you interested in more education?: No Please select the resources that you would like help with: None Currently or been in a relationship where the following occur: No concerns reported THRIVE Score: 0 AUDIT C Alcohol Use Questionnaire (AUDIT-C) 1. How often do you have a drink containing alcohol?: 2-4 times a month 2. How many drinks containing alcohol do you have on a typical day when you are drinking?: 1 or 2 3. How often do you have six or more drinks on one occasion?: Less than monthly Total Score: 3 SEN-7 AMB Questionnaire SEN-7 Date SEN - 7 assessed: 09/16/23 Feeling nervous, anxious, or on edge: 0 = Not at all Not being able to stop or control worryin = Not at all Worrying too much about different things: 0 = Not at all Trouble relaxin = Not at all Being so restless that it is hard to sit still: 0 = Not at all Becoming easily annoyed or irritable: 0 = Not at all Feeling afraid as if something awful might happen: 0 = Not at all Total SEN-7 score (0-4 normal; 5-9 mild; 10-14 moderate; 15-21 severe): 0 Source: Developed by Drs. Omar Rosenthal, Harper Kuhn, Ray Turcios and colleagues, with an educational sherron from [employer]. SEN-7 Assessment Billing SEN-7 Assessment Tool: SEN-7 Assessment 86015 Review of Systems Const All systems reviewed & are unremarkable except as noted in HPI and below Physical exam (Primary Care) Vital Signs: Last Vital Signs Pulse 82 12/21/23 12:54 BP 134/90 H 12/21/23 12:54 Pulse Ox 98 12/21/23 12:54 Oxygen Delivery Method Room Air 12/21/23 12:54 BMI result Body Mass Index 24.9 Tobacco/Smoking Status: Tobacco use Status Tobacco use date assessed 09/16/23 12/21/23 12:58 Patient Tobacco Use Status Current everyday Tobacco 12/21/23 12:58 Tobacco use type Cigarette 12/21/23 12:58 e-Cigarette/Vaping Use Former Use 12/21/23 12:58 Depression Screening Interpretation: Negative Thrive Assessment: Date of Thrive Assessment Date Thrive assessed 09/16/23 12/21/23 12:58 Currently or been in a relationship where the following occur: No concerns reported Const Other: Alert oriented x3, no acute cardiorespiratory distress noted, ambulatory normal gait Orientation/consciousness: patient oriented x3 HENMT Mouth: moist mucous membranes Resp Auscultation: clear to auscultation bilaterally Cardio Other: S1-S2 present regular rate and rhythm GI Auscultation: normal bowel sounds General: Yes no CVA tenderness Back/Spine/Pelvis Back: no CVA tenderness Skin General skin exam: no rashes or lesions noted Neuro General: patient oriented x3, gait normal, tone normal, moves all extremities, Normal light touch and pain sensation and no focal motor deficits Extrem General: Yes full ROM, Yes no joint enlargement, Yes no clubbing, cyanosis or edema and Yes normal gait Assessment and Plan Assessment & Plan (1) Encounter for smoking cessation counseling: Code(s): Z71.6 - Tobacco abuse counseling Plan: Discontinued Chantix and will try on bupropion HCL, instructed to start 150 mg tablet once a day for the 1st 3 days and may increase it to twice a day thereafter. Slowly cut back on her cigarettes when she start taking bupropion Medications: New bupropion HCl (smoking deter) 150 mg PO DAILY 60 tabs 1RF Coding Level of Care Code Est Pt Level 3 (69507) Diagnoses Encounter for smoking cessation counseling Z71.6 Additional Codes SEN-7 Assessment Billing - SEN-7 Assessment Tool: SEN-7 Assessment 23638 ([id number])
[2023-12-21 12:54] VITALS: BP 134/90; PULSE 82; O2SAT 98; BMI 24.9
== END 2023-12-21 13:46 | disposition home or self-care (01) ==
PROVIDERS: PCP Internal Medicine; Visit Provider Internal Medicine
DX: F17.210 Nicotine dependence, cigarettes, uncomplicated (principal); Z71.6 Tobacco abuse counseling
CPT/HCPCS: 99213

== ENCOUNTER → 2024-01-28 07:59 | Outpatient (BNVA) | payer OTHER, SELFPAY | PROVIDERS: PCP Internal Medicine; Visit Provider Internal Medicine ==

== ENCOUNTER 2024-04-03 08:46 | Outpatient (AMB) | payer OTHER, SELFPAY ==
[2024-04-03 08:55] VITALS: BP 130/86; PULSE 89; O2SAT 98; BMI 24.6
--- NOTE | 2024-04-03 08:55 | A.OFFPC_ITS ---
Vital Signs 04/03/24 08:55 Height 5 ft 2 in Weight 134 lb 4 oz BMI 24.6 BP 130/86 Blood Pressure Location Rt brachial Position Sitting Pulse 89 Pulse Source Pulse Oximeter Pulse Oximetry (%) 98 Oxygen Delivery Method Room Air Intake Visit Reasons: Annual PE Intake Note: Pt is here today for her Annual Physical. Last mammogram 09/30/20 Allergies walnut Allergy (Severe, Verified 04/03/24 09:17) Anaphylaxis adhesive Allergy (Unknown, Verified 04/03/24 09:17) Blister egg Allergy (Unknown, Verified 04/03/24 09:17) Gastrointestinal Upset erythromycin base Allergy (Unknown, Verified 04/03/24 09:17) Diarrhea, Hives Latex, Natural Rubber [LATEX, NATURAL RUBBER] Allergy (Unknown, Verified 04/03/24 09:17) Rash cyclobenzaprine [From Flexeril] Adverse Reaction (Unknown, Verified 04/03/24 09:17) makes her anxious, jittery Medication List - Last Reconciled 04/03/24 by Norma Waters MD No Known Home Meds Tobacco use date assessed: 04/03/24 Dental Screening Dental Screen Date: 04/03/24 Did you have a dental visit in the last 12 months?: Yes Did you have a dental problem in the last 6 months where you did not have access to dental care?: No Was dental information given to patient?: Patient has dentist HPI Annual PE HPI Details - The patient is a 53-year-old female pr esenting for her physical exam. - Menopausal Syndrome: Patient reports e xperiencing hot flashes, not on any medication currently. Symptoms reported to have started after early menopause around age 44, with full menopause achieved by age 47. - Osteopenia: A prior bone density test in 2020 indicated bone thinning at the lumbar spine and femoral neck. Discussed potential need for follow-up and coordination with insurance for coverage. - Retinal Detachment, Posterior (suspect ed): Reports past eye exam findings that increased awareness of potential detachment due to symptoms of eye floaters. - Family history of MTHFR mutation: Info rmed about sister and niece diagnosed with the mutation, resulting in homocysteine metabolism issues- -Mammogram overdue, last 1 done in 2020 - Pap smear and pelvic exam due, referr al to new OBGYN discussed. - Colonoscopy screening discussed; patie nt undecided. - Encouraged vitamin D and vitamin B com plex level checks. - Bone density scan recommended with an insurance check advised for coverage before scheduling. - Advised against engaging in high impac t activities due to retinal detachment risk. -continues to smoke cigarettes, with no desire to quit at present time - [facility] Medical History Family history of MTHFR deficiency Hot flashes Early menopause Osteopenia of multiple sites Herniation of cervical intervertebral disc with radiculopathy History of smoking 10-25 pack years Depression with anxiety Primary insomnia Dyslipidemia Surgical History H/O wisdom tooth extraction H/O arthroscopic knee surgery H/O bilateral breast reduction surgery History of partial hysterectomy Social History Housing: Condominium Alcohol intake: current Patient Tobacco Use Status: Current everyday Tobacco user Tobacco use type: Cigarette Cigarette Packs Per Day: 8 Cigarettes Per Day: 40 Years Smoked: 30 e-Cigarette/Vaping Use: Former Use Second Hand Smoke Exposure: No service: No Current occupational status: employed Cognitive needs: No Hearing needs: No Vision needs: Yes Questionnaire Thrive Questionnaire Date Thrive assessed: 04/03/24 I am a: Patient What is your living situation today?: I have a steady place to live Within the past 12 months, did the food you bought not last and you didn't have the money to get more?: Never true Within the past 12 months, did you worry whether your food would run out before you got money to buy more?: Never true Do you have trouble paying for medicines?: No Do you have trouble getting transportation to medical appointments?: No Do you have trouble paying your heating and electricity bill?: No Do you have trouble taking care of your child, family member or friend?: No Do you have trouble with day-to-day activities such as bathing, preparing meals, shopping, managing finances, etc.?: No Are you currently unemployed and looking for a job?: No Are you interested in more education?: No Please select the resources that you would like help with: None Currently or been in a relationship where the following occur: No concerns reported THRIVE Score: 0 AUDIT C Alcohol Use Questionnaire (AUDIT-C) 1. How often do you have a drink containing alcohol?: 2-4 times a month 2. How many drinks containing alcohol do you have on a typical day when you are drinking?: 1 or 2 3. How often do you have six or more drinks on one occasion?: Less than monthly Total Score: 3 Score Reviewed/Action Taken: Yes SEN-7 AMB Questionnaire SEN-7 Date SEN - 7 assessed: 09/16/23 Source: Developed by Drs. Omar Rosenthal, Harper Kuhn, Ray Turcios and colleagues, with an educational sherron from [employer]. Review of Systems Const Reports no additional complaints Eyes Denies change in vision ENT Denies dizziness, Denies hoarseness and Denies nasal congestion Card Denies chest pain, Denies irregular heart rhythm, Denies lightheadedness and Denies dyspnea Resp Denies cough and Denies dyspnea GI Denies abdominal pain, Denies hematochezia and Denies change in bowel habits Reports no additional complaints Musc Reports no additional complaints Skin/Breast Denies breast pain, Denies breast mass, Denies lesions and Denies rash Neuro Denies dizziness Psych Reports no additional complaints Endo Reports no additional complaints Lucian/Lymph Reports no additional complaints Aller/Immun Reports no additional complaints Physical exam (Primary Care) Vital Signs: Last Vital Signs Pulse 89 04/03/24 08:55 BP 130/86 04/03/24 08:55 Pulse Ox 98 04/03/24 08:55 Oxygen Delivery Method Room Air 04/03/24 08:55 BMI result Body Mass Index 24.6 Tobacco/Smoking Status: Tobacco use Status Tobacco use date assessed 04/03/24 04/03/24 08:59 Patient Tobacco Use Status Current everyday Tobacco 04/03/24 08:59 Tobacco use type Cigarette 04/03/24 08:59 e-Cigarette/Vaping Use Former Use 04/03/24 08:59 Are you ready to quit: No Thrive Assessment: Date of Thrive Assessment Date Thrive assessed 04/03/24 04/03/24 09:03 Currently or been in a relationship where the following occur: No concerns reported Const Other: Alert oriented x3, no acute cardiorespiratory distress noted, ambulatory normal gait Orientation/consciousness: patient oriented x3 HENMT Mouth: moist mucous membranes Eyes General: appearance normal, both eyes and all related structures Neck Neck: Yes full ROM, Yes no lymphadenopathy and Yes supple Thyroid: Thyroid normal (Nonpalpable) Chest Chest palpation & inspection: normal inspection of the chest Breast/axilla palpation: normal palpation of the breasts Resp Auscultation: clear to auscultation bilaterally Cardio Other: S1-S2 present regular rate and rhythm GI Auscultation: normal bowel sounds General: Yes no CVA tenderness Back/Spine/Pelvis Back: no CVA tenderness Skin General skin exam: no rashes or lesions noted Neuro General: patient oriented x3, gait normal, tone normal, moves all extremities, Normal light touch and pain sensation and no focal motor deficits Extrem General: Yes full ROM, Yes no joint enlargement, Yes no clubbing, cyanosis or edema and Yes normal gait Psych Appearance: grossly normal and well kempt Mental Status: mental status grossly normal Speech and movement: Normal speech and movement present Affect: normal affect Attitude: cooperative Thought process: Normal thought process present Thought content: Normal thought content present Coding Level of Care Code Est Pt Prev Care 40-64y(96095) Diagnoses Annual visit for general adult medical examination with abnormal findings Z00.01 Osteopenia of multiple sites M85.89 Screening for malignant neoplasm of cervix Z12.4 Dyslipidemia E78.5 Primary insomnia F51.01 Early menopause E28.319 Family history of MTHFR deficiency Z83.49 Assessment & Plan Assessment & Plan (1) Annual visit for general adult medical examination with abnormal findings: Code(s): Z00.01 - Encounter for general adult medical examination with abnormal findings (2) Osteopenia of multiple sites: Code(s): M85.89 - Other specified disorders of bone density and structure, multiple sites Category: Medical (3) Screening for malignant neoplasm of cervix: Code(s): Z12.4 - Encounter for screening for malignant neoplasm of cervix (4) Osteopenia of multiple sites: Code(s): M85.89 - Other specified disorders of bone density and structure, multiple sites Category: Medical (5) Dyslipidemia: Code(s): E78.5 - Hyperlipidemia, unspecified Category: Medical (6) Primary insomnia: Code(s): F51.01 - Primary insomnia Category: Medical (7) Early menopause: Code(s): E28.319 - Asymptomatic premature menopause Category: Medical (8) Family history of MTHFR deficiency: Code(s): Z83.49 - Family history of other endocrine, nutritional and metabolic diseases Category: Medical Plan - Schedule screening mammogram. - Coordinate Pap smear referrals to [facility], per patient request. - Recommend bone density scan, advise patient to insurance if covered. - Suggest assessment for homocysteine and vitamin B6 levels relating to family history of MTHFR mutation. - Discuss option of medical management for menopausal symptoms such as hot flashes, considering non-hormonal treatment options. - Reinforce safety precautions to reduce risk of retinal detachment by advising avoidance of high-impact activities. -fasting labs ordered today -declined colon cancer screening with either colonoscopy or Cologuard testing = patient declined all vaccines recommended but did get her Tdap in the past Orders: Orders MM tomosynthesis screening BI 04/03/24 E28.319 - Asymptomatic premature menopause, M85.89 - Other specified disorders of bone density and structure, multiple sites, Z12.31 - Encounter for screening mammogram for malignant neoplasm of breast Vitamin D 25-OH Total 04/03/24 E28.319 - Asymptomatic premature menopause, E78.5 - Hyperlipidemia, unspecified, F51.01 - Primary insomnia, M85.89 - Other specified disorders of bone density and structure, multiple sites, Z00.01 - Encounter for general adult medical examination with abnormal findings, Z83.49 - Family history of other endocrine, nutritional and metabolic diseases Vitamin B6 04/03/24 E28.319 - Asymptomatic premature menopause, E78.5 - Hyperlipidemia, unspecified, F51.01 - Primary insomnia, M85.89 - Other specified disorders of bone density and structure, multiple sites, Z00.01 - Encounter for general adult medical examination with abnormal findings, Z83.49 - Family history of other endocrine, nutritional and metabolic diseases Comprehensive Branch. Panel Fast 04/03/24 E28.319 - Asymptomatic premature menopause, E78.5 - Hyperlipidemia, unspecified, F51.01 - Primary insomnia, M85.89 - Other specified disorders of bone density and structure, multiple sites, Z00.01 - Encounter for general adult medical examination with abnormal findings, Z83.49 - Family history of other endocrine, nutritional and metabolic diseases Lipid Panel 04/03/24 E28.319 - Asymptomatic premature menopause, E78.5 - Hyperlipidemia, unspecified, F51.01 - Primary insomnia, M85.89 - Other specified disorders of bone density and structure, multiple sites, Z00.01 - Encounter for general adult medical examination with abnormal findings, Z83.49 - Family history of other endocrine, nutritional and metabolic diseases XR DEXA axial skeleton 04/03/24 E28.319 - Asymptomatic premature menopause, M85.89 - Other specified disorders of bone density and structure, multiple sites, Z12.31 - Encounter for screening mammogram for malignant neoplasm of breast Vitamin B12 and Folate 04/03/24 E28.319 - Asymptomatic premature menopause, E78.5 - Hyperlipidemia, unspecified, F51.01 - Primary insomnia, M85.89 - Other specified disorders of bone density and structure, multiple sites, Z00.01 - Enc ounter for general adult medical examination with abnormal findings, Z83.49 - Family history of other endocrine, nutritional and metabolic diseases Homocysteine 04/03/24 E28.319 - Asymptomatic premature menopause, E78.5 - Hyperlipidemia, unspecified, F51.01 - Primary insomnia, M85.89 - Other specified disorders of bone density and structure, multiple sites, Z00.01 - Encounter for general adult medical examination with abnormal findings, Z83.49 - Family history of other endocrine, nutritional and metabolic diseases Referrals [facility] Referral R23.2 - [place], Z12.4 - Encounter for screening for malignant neoplasm of cervix
== END 2024-04-03 13:51 | disposition home or self-care (01) ==
PROVIDERS: PCP Internal Medicine; Visit Provider Internal Medicine
DX: Z00.01 Encounter for general adult medical examination with abnormal findings (principal); M85.89 Other specified disorders of bone density and structure, multiple sites; Z12.4 Encounter for screening for malignant neoplasm of cervix; E78.5 Hyperlipidemia, unspecified; F51.01 Primary insomnia; E28.319 Asymptomatic premature menopause; Z83.49 Family history of other endocrine, nutritional and metabolic diseases

== ENCOUNTER → 2024-04-03 08:46 | Outpatient (BNVA) | payer OTHER, SELFPAY | PROVIDERS: PCP Internal Medicine; Visit Provider Internal Medicine | DX: Z00.01 Encounter for general adult medical examination with abnormal findings (principal); M85.89 Other specified disorders of bone density and structure, multiple sites; E78.5 Hyperlipidemia, unspecified; F51.01 Primary insomnia; E28.319 Asymptomatic premature menopause; Z83.49 Family history of other endocrine, nutritional and metabolic diseases; Z12.4 Encounter for screening for malignant neoplasm of cervix | CPT/HCPCS: 99396 ==